=== PATIENT | female | born 1950 | race Caucasian/White ===

== ENCOUNTER 2018-05-11 04:44 | Inpatient (IN) ==
--- NOTE | 2018-04-25 08:41 | History & Physical Report ---
Date of Service April 25, 2018 Assessment & Plan (1) Degenerative arthritis of knee, bilateral: Risks and benefits of the procedure discussed in detail today, patient would like to proceed with bilateral total knee replacements at [facility]. Will obtain medical clearance with Dr Burgess this Wednesday04/27/18 prior to surgery as well as obtain PATs at [facility]. Will place on Xarelto x 4 weeks post op , f/u 2 weeks post op for routine post-operative care and xray, sooner if having any problems. will make arrangements for HHPT at the time of discharge, we also discussed potential rehab stay pending her recovery at [facility]. History of Present Illness Chief Complaint: bilateral knee pain Primary Care Provider: Altaf Burgess Ms Lock is a 67 year old female who complains of bilateral knee pain, presents today for pre-op evaluation prior to bilateral total knee replacements to be performed by Dr Abrams at [facility]. She states that her pain is greater on the right than the left. She states that the symptoms have been chronic non-traumatic and that her pain is constant with intermittent worsening. Currently the patient states that the symptoms are moderate-severe. The pain is described as aching and sharp. She rates her current pain as 8/10. The symptoms are aggravated by first steps while awake, sleeping in any position and walking. Zulema states that the symptoms are relieved by no specific activity. In addition to her knee pain, she is also experiencing crepitus, difficulty going to sleep and limping. Patient was referred to us by her family doctor, Dr Burgess. Xrays reviewed from her PCP showing degenerative changes to both of her knees, greatest in the patellofemoral joints with osteophyte formation. Patient has tried prior NSAIDs as well as previous Supartz injections, has used a brace as well as a cane on occasion for ambulation. Allergies Allergy/AdvReac Type Severity Reaction Status Date / Time No Known Allergies Allergy Verified 04/20/18 10:36 Home Medications Home Medications Medication Instructions Recorded Confirmed Type aspirin [Aspir-81] 81 mg PO QAM 04/20/18 04/20/18 History cholecalciferol (vitamin D3) 1,000 unit PO QAM 04/20/18 04/20/18 History [Vitamin D3] losartan-hydrochlorothiazide 1 tab PO QAM 04/20/18 04/20/18 History Past Med/Surg History Medical History History of hysterectomy Hypertension Osteoarthritis Surgical History History of basal cell carcinoma (BCC) excision EXCISON FROM SCALP History of cholecystectomy History of laminectomy LUMBAR History of tonsillectomy Family History Unknown Diabetes Hypertension Stroke Social History Current Living Situation: Spouse Other Information That Helps Us Care for You: No Feels Safe at Home: Yes Safety Concerns: Feels Safe At This Time Smoking Status: Never smoker Do You Dip or Chew Tobacco: No Second Hand Exposure: No Tobacco Cessation Education Requested by Patient: No Hx Alcohol Use: No Hx Substance Use: No Beliefs That Will Affect Care: None Preferred Language: Niuean Communication Ability: Effective Inside Sales Lead Required: No Review of Systems All systems reviewed & are unremarkable except as noted in HPI & below Physical Exam 2 Vital Signs (Past 24 Hours): BP 140/84 Pulse 82 Respirations 16 Constitutional: WD/WN, vitals as above no acute distress Respiratory: normal respiratory effort, lungs clear to auscultation Cardiovascular: RRR, no murmur, no edema Heart Sounds: no murmur Gastrointestinal (Abdomen): normal bowel sounds, soft, nontender, no hepatosplenomegaly Musculoskeletal: Right Knee Exam Ambulates with a limp, overall neutral Alignment, no Atrophy or ecchymosis, mild effusion, Maximum tenderness Medial joint line and diffuse, negative patellar Apprehension , mild Crepitation with motion, Bakari's and posterior drawer Negative, Gisele's - lateral positive, Gisele's - medial positive, Valgus stress Negative, Varus stress Negative, no Extensor lag, Pain with Active range of motion, also passive painful ROM, Range of motion 0/3/110. No pain with active/passive ROM of ankle. Lower Extremity Strength normal. Lower Extremity Neuro-vascular is normal Left Knee mild Effusion suprapatellar pouch, tenderness presend medial and lateral joint lines, negative patellar Apprehension , mild Crepitation with motion, Bakari's Negative, Gisele's - lateral positive, Gisele's - medial positive, Posterior drawer- Negative, Anterior drawer Negative, Valgus stress Negative, Varus stress Negative, no Extensor lag, Pain with Active range of motion, range of motion 0/5/115. No pain with active/passive ROM of ankle. Lower Extremity Strength normal. Lower Extremity Neuro-vascular is normal Results & Data Diagnostic Findings Bilateral knee X-rays: bilateral knee films showing degenerative changes to both knees, greatest in the patellofemoral joints bilaterally, mild valgus deformity noted on the right knee, neutral left knee. both knees showing osteophyte formation and patellar spurring noted to bilateral patellas. no acute bony pathology noted, no loose bodies noted. findings consistent with degenerative joint disease bilateral knees.
--- NOTE | 2018-04-25 13:02 | Anesthesiology Consultation ---
Date of Service April 25, 2018 Assessment & Plan (1) Encounter for pre-operative examination: Plan: - Discussed B/L versus staged TKA with patient; patient wishes to proceed with B /L TKA. Chart Review Chart Review: Acceptable Risk for Surgery and Patient seen in Pre Admission Testing Teaching & Discussion Pre-Anesthesia Teaching/Discussion Notes: Instructed NPO after midnight before surgery,except medications with 15 cc of water. Medication instructions provided according to the PAT guidelines. History Surgery Operation Date: 05/11/18 08:20 Proposed Procedures p Bilateral Total Knee Arthroplasty - Altaf Abrams DO Height/Weight Height: 5 ft 11 in Weight: 113.6 kg Allergies Allergy/AdvReac Type Severity Reaction Status Date / Time No Known Allergies Allergy Verified 04/20/18 10:36 Medications Home Medications Medication Instructions Recorded Confirmed Last Taken aspirin [Aspir-81] 81 mg PO QAM 04/20/18 04/20/18 Unknown cholecalciferol (vitamin D3) 1,000 unit PO QAM 04/20/18 04/20/18 Unknown [Vitamin D3] losartan-hydrochlorothiazide 1 tab PO QAM 04/20/18 04/20/18 Unknown Past Medical History Medical History Hypertension Osteoarthritis Past Family History Family History Unknown Diabetes Hypertension Stroke Past Surgical History Surgical History History of basal cell carcinoma (BCC) excision EXCISON FROM SCALP History of cholecystectomy History of hysterectomy History of laminectomy LUMBAR History of tonsillectomy Past Anesthesia History No Hx of Anesthesia Complications and No Family Hx of Anesthesia Complications History of PONV No Motion Sickness Screening History of Motion Sickness: No Social History Smoking Status: Never smoker Do You Dip or Chew Tobacco: No Hx Alcohol Use: No Alcohol Intake Frequency Comment: 0 Hx Substance Use: No substance use type: does not use Exercise / Class Metabolic Activity II 4-5 Yardwork/Stairs/Walk up hill Review of Systems Patient denies chest pain, shortness of breath, dyspnea on exertion, cough, wheezing, palpitations. Physical Exam Vital Signs VITALS BP 119/58 P 76 TEMP 97.7 SP02 93%RA RESP 16 Full neck and c-spine range of motion. Full TMJ range of motion. TMD 2.5 finger breaths Mallampati Score 3 Dentition: missing molars/sides, fragile/loose teeth 2/2 "gum disease" per patient Lungs: clear throughout to auscultation Cardiac: regular rate and rhythm, no murmurs noted Spine: normal Carotid arteries: negative bruit Extremities: no edema Testing Electrocardiogram Date: 04/25/18 Findings: + NSR @ (72) Chest X-Ray Date: 04/25/18 Findings: + NAD Linear opacities within the lingula are felt to be atelectatic. Laboratory Results 04/25/18 13:21 04/25/18 13:21 Blood Type A Positive 04/25/18 13:21 Antibody Screen NEGATIVE 04/25/18 13:21 PT 10.0 Seconds (9.0-12.0) 04/25/18 13:21 INR 1.0 (0.9-1.1) 04/25/18 13:21 APTT 25.0 Seconds (21.0-31.0) 04/25/18 13:21 Hemoglobin A1c 6.8 % (4.5-5.6) H 04/25/18 13:21 Urine Color Yellow 04/25/18 13:21 Urine Appearance Clear (Clear) 04/25/18 13:21 Urine pH 5.5 (4.5-7.5) 04/25/18 13:21 Ur Specific [place] 1.019 (1.000-1.030) 04/25/18 13:21 Urine Protein Negative (Negative) 04/25/18 13:21 Urine Glucose (UA) Negative (Negative) 04/25/18 13:21 Urine Ketones Trace (Negative) H 04/25/18 13:21 Urine Nitrite Negative (Negative) 04/25/18 13:21 Ur Leukocyte Esterase Trace (Negative) H 04/25/18 13:21 Urine WBC (Auto) 10-30 /hpf (0-5) H 04/25/18 13:21 Urine RBC (Auto) 0-4 /hpf (0-4) 04/25/18 13:21 U Hyaline Cast (Auto) 1-5 /lpf (0-5) 04/25/18 13:21 U Epithel Cells (Auto) >30 /lpf (0-5) H 04/25/18 13:21 Urine Bacteria (Auto) 1+ (Negative) H 04/25/18 13:21 04/25/18 13:21 Urine Culture - Preliminary Urine,Clean Catch Gram negative bacilli Surgeon made aware of abnormal UA
--- NOTE | 2018-04-25 13:05 | PAT Medication Instructions ---
Medication Instructions Date of Service April 25, 2018 Home Medications aspirin [Aspir-81] 81 mg PO QAM cholecalciferol (vitamin D3) 1,000 unit PO QAM losartan-hydrochlorothiazide 1 tab PO QAM DO NOT take the morning of surgery cholecalciferol (vitamin D3) 1,000 unit PO QAM losartan-hydrochlorothiazide 1 tab PO QAM Take morning of surgery With a small sip of water, OTHERWISE NOTHING TO EAT OR DRINK AFTER MIDNIGHT: aspirin [Aspir-81] 81 mg PO QAM Other Notes If you have any questions please call us at [phone] or [phone] or [phone] or [phone]
--- NOTE | 2018-04-25 14:06 | XRay Report ---
XR chest Pre-admission PA/Lat CLINICAL HISTORY: Preoperative chest COMPARISON STUDY: No previous studies for comparison. FINDINGS: The cardiac and mediastinal contours are normal. There is no evidence of focal pulmonary co nsolidation. There is no evidence of failure. No pleural effusions are visualized.[ Linear opacities within the lingula are felt to be atelectatic. IMPRESSION: No active disease in the chest. Electronically signed by: Michael Barrera M.D. 04/25/2018 2:04 PM
[2018-04-25 14:19] LABS: Basophils # (auto) 0.02 K/uL (0-0.2); Basophils % (auto) 0.2 %; Eosinophils # (auto) 0.09 K/uL (0-0.5); Eosinophils % (auto) 0.9 %; Hematocrit (blood only) 43.3 % (37-47); Hemoglobin 14.1 g/dL (12.0-16.0); Immature Granulocytes # (auto) 0.03 K/uL (0.00-0.02); Immature Granulocytes % (auto) 0.3 %; Lymphocytes # (auto) 2.07 K/uL (1.2-3.4); Lymphocytes % (auto) 21.4 %; Mean Corpuscular Hgb Conc 32.6 g/dL (32-36); Mean Corpuscular Volume 87.7 fL (80-100); Mean Platelet Volume 10.9 fL (7.4-10.4); Monocytes # (auto) 0.47 K/uL (0.11-0.59); Monocytes % (auto) 4.9 %; Neutrophils # (auto) 6.99 K/uL (1.4-6.5); Neutrophils % (auto) 72.3 %; Platelet Count 204 K/uL (130-400); RDW Coefficient of Variation 14.6 % (11.5-14.5); RDW Standard Deviation 46.6 fL (36.4-46.3); Red Blood Count 4.94 M/uL (4.2-5.4); White Blood Count 9.67 K/uL (4.8-10.8)
[2018-04-25 14:30] LABS: Albumin Level 3.7 gm/dl (3.4-5.0); Calcium 9.2 mg/dl (8.5-10.1); Creatinine Clr Calc Pharmacy 64.1 ml/min; Est GFR (African American) 56.2; Est GFR (Non-African American) 48.5; Potassium 4.1 mmol/L (3.5-5.1)
[2018-04-25 14:46] LABS: Appearance Urine Clear (Clear); Bacteria Urine Automated 1+ (Negative); Bilirubin Urine Negative (Negative); Color Urine Yellow; Epithelial Cell Urine Auto >30 /lpf (0-5); Glucose Urine UA Negative (Negative); Ketones Urine Trace (Negative); Leukocyte Esterase Urine Trace (Negative); Nitrite Urine Negative (Negative); Protein Urine Negative (Negative); Specific Gravity Urine 1.019 (1.000-1.030); Urobilinogen Urine Negative (Negative); pH Urine 5.5 (4.5-7.5)
[2018-04-25 14:48] LABS: Estimated Average Glucose 148 mg/dl
[2018-05-11] MEDS ORDERED: GABAPENTIN 300 MG PO SCH (06:00)
[2018-05-11] MEDS ORDERED: dexAMETHasone 4 MG TAB PO SCH (06:00)
[2018-05-11] MEDS ORDERED: TRANEXAMIC ACID 1,000 MG **IV Pre-op IV SCH (06:00)
[2018-05-11] MEDS ORDERED: ACETAMINOPHEN 500 MG TAB PO SCH (06:00)
[2018-05-11] MEDS ORDERED: CEFAZOLIN 2000MG 2,000 MG/15 ML SYR IV SCH (06:00)
[2018-05-11] MEDS ORDERED: METOCLOPRAMIDE HCL 10 MG TABLET PO SCH (06:00)
[2018-05-11] MEDS ORDERED: CeleBREX 200 MG CAP PO SCH (06:00)
[2018-05-11] MEDS ORDERED: ROPIVACAINE 0.5% HCL/PF 150 MG, BUPIVACAINE 0.5% MPF 30 ML, EPINEPHrine 30MG/30ML (OR U... INFIL SCH (06:00)
[2018-05-11] MEDS ORDERED: FAMOTIDINE 20 MG TAB PO SCH (06:00)
[2018-05-11] MEDS ORDERED: BUPIVACAINE 0.5 % 5 MG/1 ML PF 10ML VIAL ONE (06:28)
[2018-05-11] MEDS ORDERED: ROPIVACAINE 0.5% 5 MG/ML 30 ML VIAL ONE (06:28)
[2018-05-11] MEDS ORDERED: EPINEPHrine INJ 1 MG/ML AMP ONE (06:28)
[2018-05-11] MEDS ORDERED: TRANEXAMIC ACID 1,000 MG **IV Intra-op IV SCH (06:30)
[2018-05-11] MEDS: LR 500ML BOLUS, THEN 15ML/HR IV SCH ×3 (06:39→12:26)
--- NOTE | 2018-05-11 07:03 | History & Physical Bridge Note ---
Date of Service May 11, 2018 History & Physical Bridge Note I have examined the patient, reviewed the History & Physical and in the interval since the performance of the History & Physical I have noted the following changes of clinical significance: no changes noted
[2018-05-11] MEDS ORDERED: BACITRACIN INJ 50,000 UNIT VIAL ONE (07:06)
[2018-05-11] MEDS ORDERED: POVIDONE-IODINE OP SOLN 30 ML BTL ONE (07:06)
[2018-05-11] MEDS ORDERED: ORTHO JOINT ANESTHETIC ONE (07:06)
[2018-05-11] MEDS ORDERED: PHENYLEPHRINE 100MCG/ML 5ML SYR IV PRN (07:14)
[2018-05-11] MEDS ORDERED: MEPERIDINE HCL 25 MG/ML CARP IV PRN (07:14)
[2018-05-11] MEDS ORDERED: ePHEDrine sulfate 50 MG/ML AMP IV PRN (07:14)
[2018-05-11] MEDS ORDERED: ATROPINE SULFATE 0.1 MG/ML 10ML SYR IV PRN (07:14)
[2018-05-11] MEDS ORDERED: ONDANSETRON INJ 2 MG/ML 2 ML VIAL IV PRN ×2 (07:14→12:23)
[2018-05-11] MEDS ORDERED: LABETALOL HCL IV 5 MG/ML 20ML IV PRN (07:14)
[2018-05-11] MEDS ORDERED: fentaNYL citrate 100 MCG/2 ML VIAL IV PRN (07:14)
[2018-05-11] MEDS ORDERED: MIDAZOLAM HCL 1 MG/ML 2ML VIAL ONE ×2 (07:29→10:03)
--- NOTE | 2018-05-11 10:07 | Operative Report ---
Post Operative Report Pre & Post Diagnosis Operation Date: 05/11/18 08:20 Pre-Op Diagnosis: Bilateral knee degenerative joint disease Post-Op Diagnosis: Bilateral knee degenerative joint disease Procedure Operation Date: 05/11/18 08:20 Actual Procedures p Bilateral Total Knee Arthroplasty, Cemented(Bilateral) utilizing journey 2 patient matched total knee arthroplasty right size 6 femur 5 tibia 11 polyethylene 29 oval patella left size 6 femur 5 tibia 10 polyethylene 29 oval patella- Altaf Abrams DO Surgeon Altaf Abrams DO Media Relations Manager Kenan WHITLOCK Estimated Blood Loss 5 Findings Consistent with Post-Op Diagnosis Patient presents with bilateral DJD varus alignment with bilaterally subchondral cystic changes marginal osteophytes eburnated bone serial ligamentous laxity due to loss of medial bone and articular cartilage patient has moderate effusions of bilateral knees and subchondral cystic changes noted Specimens Bone and cartilage Drains Medium bore Hemovac Complications none Disposition Accompanied Patient To Recovery: No Disposition: Recovery Room Indications Patient presents as a 67-year-old white female with severe end-stage DJD bilateral knees no response to conservative management and physical therapy anti -inflammatories relative rest activity modifications corticosteroid injections relative rest patient presents for bilateral total knee arthroplasty failing all the above conservative measures. Description of Procedure After proper prepping and draping of the bilateral lower extremities, an anterior midline incision was made over the region of the extensor extensor mechanism of the left knee. After meticulous hemostasis was obtained and maintained in subcutaneous tissues a medial parapatellar incision was made The patella was subluxed lateralward the medial lateral gutter were cleaned from any hypertrophic synovitis and scar tissue of the distal femoral block was placed and the distal femoral osteotomy cut was made subsequently the chamfers anterior and posterior osteotomy cuts were made utilizing the 4-in-1 block the tibia was subsequently subluxed anteriorward medial and ateral meniscal remnants were excised in their entirety remnants of the anterior and posterior cruciate ligaments were excised in their entirety excellent exposure of the proximal tibia was obtained the tibial osteotomy guide was placed on the proximal tibial osteotomy cut was made once again the knee was irrigated with copious amounts of sterile saline solution the patella was subsequently everted lateralward thickened scar tissue around the patella was removed the patella was subsequently cut utilizing a freehand technique and was drilled prepared for final preparation and placement of patella socially flexion-extension gaps were checked and the equal and symmetric trials were placed to the appropriate femoral and tibial trials with poly-spacer being placed for equal flexion and extension gaps and full range of motion including extension to 0 and flexion to 140� the trial components after having been taken to recovery range of motion was subsequently removed meticulous hemostasis was obtained and maintained subsequently a knee block injection of joint cocktail including ropivacaine 0.5 % 150 mg. Bupivacaine 0.5% epinephrine 1-200,030 mL's toradol 30 mg dexamethasone 4 mg ketamine 10 mg clonidine 100 micrograms normal saline solution 30 mg was infiltrated into the soft tissues of the posterior knee medial lateral gutters and periosteal synovium special attention was paid to protect neurovascular structures at all times subsequently trial components having been removed the knee was irrigated with sterile saline solution. debris was removed the proximal tibia was subsequently prepared and was made ready for the placement of the tibial component tibial component was also cemented and tamped into position the femoral component was subsequently placed and cemented in the position the patellar component was subsequently cemented in position because hemostasis once again obtained and maintained wound having been thoroughly irrigated with debridement and debridement lavage was performed as well as a medial parapatellar incision closed with #1 Vicryl in interrupted fashion subcutaneous was closed with #2 Vicryl skin was closed with skin clips Next, an anterior midline incision was made over the region of the extensor extensor mechanism of the right knee. After meticulous hemostasis was obtained and maintained in subcutaneous tissues a medial parapatellar incision was made The patella was subluxed lateralward the medial lateral gutter were cleaned from any hypertrophic synovitis and scar tissue of the distal femoral block was placed and the distal femoral osteotomy cut was made subsequently the chamfers anterior and posterior osteotomy cuts were made utilizing the 4-in-1 block the tibia was subsequently subluxed anteriorward medial and ateral meniscal remnants were excised in their entirety remnants of the anterior and posterior cruciate ligaments were excised in their entirety excellent exposure of the proximal tibia was obtained the tibial osteotomy guide was placed on the proximal tibial osteotomy cut was made once again the knee was irrigated with copious amounts of sterile saline solution the patella was subsequently everted lateralward thickened scar tissue around the patella was removed the patella was subsequently cut utilizing a freehand technique and was drilled prepared for final preparation and placement of patella socially flexion-extension gaps were checked and the equal and symmetric trials were placed to the appropriate femoral and tibial trials with poly-spacer being placed for equal flexion and extension gaps and full range of motion including extension to 0 and flexion to 140� the trial components after having been taken to recovery range of motion was subsequently removed meticulous hemostasis was obtained and maintained subsequently a knee block injection of joint cocktail including ropivacaine 0.5 % 150 mg. Bupivacaine 0.5% epinephrine 1-200,030 mL's toradol 30 mg dexamethasone 4 mg ketamine 10 mg clonidine 100 micrograms normal saline solution 30 mg was infiltrated into the soft tissues of the posterior knee medial lateral gutters and periosteal synovium special attention was paid to protect neurovascular structures at all times subsequently trial components having been removed the knee was irrigated with sterile saline solution. debris was removed the proximal tibia was subsequently prepared and was made ready for the placement of the tibial component tibial component was also cemented and tamped into position the femoral component was subsequently placed and cemented in the position the patellar component was subsequently cemented in position because hemostasis once again obtained and maintained wound having been thoroughly irrigated with debridement and debridement lavage was performed as well as a medial parapatellar incision closed with #1 Vicryl in interrupted fashion subcutaneous was closed with #2 Vicryl skin was closed with skin clips.. PA-C was necessary for prepping and drapping as well as wound closure of deep fascia Sub cutaneous tissue and skin and was necessary for the case. A sterile compressive dressings were placed, patient was taken to recovery in stable condition of report dictated by Jose Alberto I attest to the content of the Intraoperative Record and any orders documented therein. Any exceptions are noted below. I attest to the content of the Intraoperative Record and any orders documented therein. Any exceptions are noted below.
--- NOTE | 2018-05-11 11:13 | Anesthesiology Progress Note ---
Date of Service May 11, 2018 Anesthesia Post Procedure Vital Signs Vital Signs: Temp Pulse Resp BP Pulse Ox 05/11/18 06:41 36.7 C 71 20 159/74 H 94 Notes Mental Status: alert / awake / arousable Patient Amnestic to Procedure: Yes Nausea / Vomiting: adequately controlled Pain: adequately controlled Airway Patency, RR, SpO2: stable & adequate BP & HR: stable & adequate Hydration State: stable & adequate Neuraxial Anesthesia: was administered and sensory block is resolving Anesthetic Complications: no major complications apparent and Pt Satisfied with anesthetic care
--- NOTE | 2018-05-11 11:33 | XRay Report ---
XR knee LT 2V routine CLINICAL HISTORY: Surgical Post Op COMPARISON: Outside radiographs dated 04/28/2018 DISCUSSION: There are postsurgical changes of a total left knee arthroplasty and patellar resurfacing . Overlying surgical drains are evident. There is air within soft tissues consistent with recent surg joseph. The femoral and tibial components appear well seated. IMPRESSION: Postsurgical changes of a total left knee arthroplasty. Electronically signed by: Michael Barrera M.D. 05/11/2018 11:31 AM
--- NOTE | 2018-05-11 11:35 | XRay Report ---
XR knee RT 2V routine CLINICAL HISTORY: Surgical Post Op DEGENERATIVE ARTHRITIS COMPARISON: Outside radiograph dated 04/18/2018 DISCUSSION: There are postsurgical changes of a total right knee arthroplasty and patellar resurfacin g. Overlying surgical drains are evident. There is air within the soft tissues, consistent with recen t surgery. The femoral and tibial components appear well seated. The tibial component is very slightl y eccentrically placed with regards to the proximal tibial osteotomy with the proximal tibial flange demonstrating 4 mm of offset. IMPRESSION: Postsurgical changes of a total right knee arthroplasty. Electronically signed by: Michael Barrera M.D. 05/11/2018 11:33 AM
[2018-05-11] MEDS ORDERED: HYDROmorphone INJ 1 MG/ML SYRINGE IV PRN (12:23)
[2018-05-11] MEDS ORDERED: NALOXONE HCL 0.4 MG/1 ML VIAL/CARP IV PRN (12:23)
[2018-05-11] MEDS ORDERED: SODIUM CHLORIDE 0.9% 1000ML 1,000 ML IV SCH (12:23)
[2018-05-11] MEDS ORDERED: BISACODYL 10 MG SUPP PR PRN (12:23)
[2018-05-11] MEDS ORDERED: MAGNESIUM HYDROXIDE SUSP 30 ML UDC PO PRN (12:23)
[2018-05-11] MEDS ORDERED: METOCLOPRAMIDE HCL INJ 5 MG/ML 2 ML VIAL IV PRN (12:23)
[2018-05-11] MEDS: KETOROLAC TROMETHAMINE 15 MG/ML VIAL IV SCH ×2 (13:54→20:02)
[2018-05-11] MEDS: ACETAMINOPHEN 500 MG TAB PO SCH ×2 (13:54→21:52)
[2018-05-11] MEDS: CEFAZOLIN 2000MG 2,000 MG/15 ML SYR IV SCH ×2 (15:43→23:41)
[2018-05-11] MEDS: FERROUS GLUCONATE 324 MG TAB PO SCH (18:54)
[2018-05-11] MEDS: OXYCODONE HCL IR 5 MG TAB (IMMEDIATE RELEASE) PO PRN (20:02)
[2018-05-11] MEDS: SENNA 8.6 MG TAB PO SCH (20:12)
[2018-05-11] MEDS: DOCUSATE SODIUM 100 MG CAP PO SCH (20:12)
[2018-05-11] MEDS ORDERED: Nursing to Pharmacy Communication ONE (20:52)
[2018-05-12] MEDS: KETOROLAC TROMETHAMINE 15 MG/ML VIAL IV SCH ×2 (01:43→08:07)
[2018-05-12 06:02] LABS: Hematocrit (blood only) 36.4 % (37-47); Hemoglobin 12.1 g/dL (12.0-16.0); Mean Corpuscular Hgb Conc 33.2 g/dL (32-36); Mean Corpuscular Volume 86.5 fL (80-100); Mean Platelet Volume 10.7 fL (7.4-10.4); Platelet Count 172 K/uL (130-400); RDW Coefficient of Variation 14.2 % (11.5-14.5); RDW Standard Deviation 44.4 fL (36.4-46.3); Red Blood Count 4.21 M/uL (4.2-5.4); White Blood Count 14.61 K/uL (4.8-10.8)
[2018-05-12] MEDS: OXYCODONE HCL IR 5 MG TAB (IMMEDIATE RELEASE) PO PRN ×4 (06:11→19:12)
[2018-05-12] MEDS: ACETAMINOPHEN 500 MG TAB PO SCH ×3 (06:12→21:29)
[2018-05-12 06:21] LABS: Alanine Aminotransferase 20 U/L (12-78); Albumin Level 2.9 gm/dl (3.4-5.0); Aspartate Aminotransferase 12 U/L (15-37); BUN Creatinine Ratio 24.6 (10-20); Bilirubin Direct < 0.1 mg/dl (0-0.2); Blood Urea Nitrogen 26 mg/dl (7-18); Calcium 8.4 mg/dl (8.5-10.1); Carbon Dioxide 24 mmol/L (21-32); Chloride 109 mmol/L (98-107); Creatinine Clr Calc Pharmacy 68.9 ml/min; Est GFR (Non-African American) 53.5; Glucose 146 mg/dl (70-99); Potassium 3.4 mmol/L (3.5-5.1); Sodium 139 mmol/L (136-145)
[2018-05-12 06:24] LABS: Alkaline Phosphatase 52 U/L (45-117); Bilirubin,Total 0.3 mg/dl (0.2-1); Total Protein 5.6 gm/dl (6.4-8.2)
--- NOTE | 2018-05-12 06:59 | Orthopedic Progress Note ---
Date of Service May 12, 2018 Assessment & Plan (1) History of total bilateral knee replacement (TKR): POD #1 s/p Bilateral TKA PT/OT dvt proph with ciara/scd/xarelto x 1 month bilateral JOSEFA dressings x 7 days pain control with Tylenol/Oxy/IV Dilaudid for breakthrough pain pt unsure of d/c planning, HHPT vs Rehab. will discuss with CM Subjective POD #1 s/p bilateral TKA denies CP/SOB denies Fever/chills pain currently 5/10 both knees Physical Exam 2 Vital Signs (Past 24 Hours): Last Vital Signs Temp 36.5 C 05/12/18 03:40 Pulse 66 05/12/18 03:40 Resp 18 05/12/18 03:40 BP 112/69 05/12/18 03:40 Pulse Ox 93 05/12/18 03:40 Musculoskeletal: Bilateral Lower Extremities: NVDI, calf SNT, negative zohra sign bilaterally. DP palpable, able to wiggle toes/ankle movement without difficulty. dressings clean dry and intact. Drain output as below: Vital Signs Temp 36.5 C 05/12/18 03:40 Pulse 66 05/12/18 03:40 Resp 18 05/12/18 03:40 BP 112/69 05/12/18 03:40 Pulse Ox 93 05/12/18 03:40 Intake & Output 05/11/18 05/11/18 05/12/18 06:59 18:59 06:59 Intake Total 2110 / 2110 840 / 840 Output Total 85 / 85 1440 / 1440 Balance 2024 / 2024 -600 / -600 Weight 111.629 kg 111.6 kg Intake: IV 810 / 810 590 / 590 Lr 1,000 ml @ 999 mls/hr IV . 700 / 700 Q1H1M NAE Rx#: [id number] Nss 1000ML 1,0 00 ml @ 100 mls/ 590 / 590 hr IV .Q10H SC H Rx#:[id number] Cyklokapron 1, 000 mg In Sodium 110 / 110 Chloride 100 m l @ 660 mls/hr IV 0630 NAE Rx#:0 [id number] IV Perioperative 1300 / 1300 Oral 250 / 250 Output: Urine 900 / 900 Estimated Blood Loss 5 / 5 Drain Output 80 / 80 540 / 540 Left Knee Hemo vac 30 / 30 265 / 265 Right Knee Hem ovac 50 50 275 / 275
[2018-05-12] MEDS: MULTIVITAMIN TAB PO SCH (08:57)
[2018-05-12] MEDS: FERROUS GLUCONATE 324 MG TAB PO SCH ×2 (08:57→19:03)
[2018-05-12] MEDS: DOCUSATE SODIUM 100 MG CAP PO SCH ×2 (08:57→20:14)
[2018-05-12] MEDS: LOSARTAN/HCTZ 50/12.5MG TAB PO SCH (08:57)
[2018-05-12] MEDS: CHOLECALCIFEROL 1,000 UNITS TAB PO SCH (08:58)
[2018-05-12] MEDS: RIVAROXABAN 10 MG TABLET PO SCH (09:13)
--- NOTE | 2018-05-12 09:21 | Anesthesiology Progress Note ---
Date of Service May 12, 2018 Anesthesia Post Procedure Vital Signs Vital Signs: Temp Pulse Pulse Resp BP Pulse Ox 05/12/18 07:42 36.5 C 67 16 101/66 93 05/12/18 03:40 36.5 C 66 18 112/69 93 05/11/18 22:56 36.7 C 67 18 94/60 L 93 05/11/18 15:04 36.4 C L 73 18 129/77 93 05/11/18 14:00 36.7 C 60 18 114/72 93 05/11/18 13:00 36.3 C L 70 18 103/65 95 05/11/18 12:36 63 16 112/68 91 05/11/18 12:00 36.5 C 71 16 105/67 95 05/11/18 11:30 36.8 C 66 14 105/57 L 97 05/11/18 11:20 65 14 104/60 97 05/11/18 11:10 70 18 110/61 95 05/11/18 11:00 71 16 117/61 95 05/11/18 10:51 37.1 C 71 16 134/64 96 Notes Mental Status: alert / awake / arousable and participated in evaluation Patient Amnestic to Procedure: Yes Nausea / Vomiting: adequately controlled Pain: adequately controlled Airway Patency, RR, SpO2: stable & adequate Hydration State: stable & adequate Neuraxial Anesthesia: was administered and sensory block is resolving Anesthetic Complications: no major complications apparent and Pt Satisfied with anesthetic care
[2018-05-12] MEDS: CeleBREX 200 MG CAP PO SCH (20:14)
[2018-05-12] MEDS: SENNA 8.6 MG TAB PO SCH (20:15)
[2018-05-13] MEDS: OXYCODONE HCL IR 5 MG TAB (IMMEDIATE RELEASE) PO PRN ×4 (05:36→19:15)
[2018-05-13] MEDS: ACETAMINOPHEN 500 MG TAB PO SCH ×3 (05:36→21:11)
[2018-05-13 06:42] LABS: BUN Creatinine Ratio 26.6 (10-20); Calcium 8.6 mg/dl (8.5-10.1); Creatinine Clr Calc Pharmacy 66.4 ml/min; Est GFR (African American) 59.3; Est GFR (Non-African American) 51.2; Potassium 3.4 mmol/L (3.5-5.1)
[2018-05-13] MEDS: DOCUSATE SODIUM 100 MG CAP PO SCH ×2 (08:26→17:49)
[2018-05-13] MEDS: CHOLECALCIFEROL 1,000 UNITS TAB PO SCH (08:26)
[2018-05-13] MEDS: RIVAROXABAN 10 MG TABLET PO SCH (08:27)
[2018-05-13] MEDS: LOSARTAN/HCTZ 50/12.5MG TAB PO SCH (08:27)
[2018-05-13] MEDS: MULTIVITAMIN TAB PO SCH (08:27)
[2018-05-13] MEDS: CeleBREX 200 MG CAP PO SCH ×2 (08:27→21:11)
[2018-05-13] MEDS: FERROUS GLUCONATE 324 MG TAB PO SCH ×2 (08:27→17:49)
[2018-05-13 10:05] LABS: Hematocrit (blood only) 32.6 % (37-47); Hemoglobin 10.8 g/dL (12.0-16.0); Mean Corpuscular Hgb Conc 33.1 g/dL (32-36); Mean Corpuscular Volume 87.4 fL (80-100); Platelet Count 151 K/uL (130-400); RDW Coefficient of Variation 14.5 % (11.5-14.5); RDW Standard Deviation 46.6 fL (36.4-46.3); Red Blood Count 3.73 M/uL (4.2-5.4); White Blood Count 11.18 K/uL (4.8-10.8)
--- NOTE | 2018-05-13 10:51 | Orthopedic Progress Note ---
Date of Service May 13, 2018 Assessment & Plan (1) History of total bilateral knee replacement (TKR): POD #2 s/p Bilateral TKA PT/OT dvt proph with ciara/scd/xarelto x 1 month bilateral JOSEFA dressings x 7 days pain control with Tylenol/Oxy/IV Dilaudid for breakthrough pain D/C planning is [facility]. If accepted and approved, will d/c later today. Subjective POD #1 s/p bilateral TKA denies CP/SOB denies Fever/chills pain currently 3-5/10 both knees. Pain is controlled with pain medications. Feels she is having more difficulty with flexion today vs. yesterday. Physical Exam 2 Vital Signs (Past 24 Hours): Last Vital Signs Temp 36.7 C 05/13/18 06:58 Pulse 71 05/13/18 06:58 Resp 18 05/13/18 06:58 BP 114/70 05/13/18 06:58 Pulse Ox 96 05/13/18 06:58 Constitutional: WD/WN, vitals as above Musculoskeletal: Knee: + surgical incision (Bilateral knees with JOSEFA dressings in place and functioning well.); knee normal to inspection, no deformity, no skin erythema, no ecchymosis, no valgus alignment and no varus alignment Neurologic: normal touch/pain/proprioception (Bilateral lower extremities with normal dorsiflexion and plantarflexion.)
[2018-05-13] MEDS: SENNA 8.6 MG TAB PO SCH (17:49)
[2018-05-14] MEDS: OXYCODONE HCL IR 5 MG TAB (IMMEDIATE RELEASE) PO PRN ×3 (00:45→14:00)
[2018-05-14] MEDS: ACETAMINOPHEN 500 MG TAB PO SCH ×2 (05:49→13:26)
[2018-05-14] MEDS: CHOLECALCIFEROL 1,000 UNITS TAB PO SCH (07:25)
[2018-05-14] MEDS: RIVAROXABAN 10 MG TABLET PO SCH (07:25)
[2018-05-14] MEDS: FERROUS GLUCONATE 324 MG TAB PO SCH (07:25)
[2018-05-14] MEDS: DOCUSATE SODIUM 100 MG CAP PO SCH (07:25)
[2018-05-14] MEDS: MULTIVITAMIN TAB PO SCH (07:25)
[2018-05-14] MEDS: LOSARTAN/HCTZ 50/12.5MG TAB PO SCH (07:25)
[2018-05-14] MEDS: CeleBREX 200 MG CAP PO SCH (07:26)
--- NOTE | 2018-05-14 08:55 | Orthopedic Progress Note ---
Date of Service May 14, 2018 Assessment & Plan (1) History of total bilateral knee replacement (TKR): POD #3 s/p Bilateral TKA PT/OT dvt proph with ciara/scd/xarelto x 1 month bilateral JOSEFA dressings x 7 days pain control with Tylenol/Oxy/IV Dilaudid for breakthrough pain Will check CBC today. Plan for SNF upon d/c to [facility]. (2) Lightheadedness: Subjective POD #3 s/p bilateral TKA denies CP/SOB denies Fever/chills pain currently 3-5/10 both knees. Pain is controlled with pain medications. Feeling lightheaded sitting and doing knee exercises. Hasn't been able to stand because of the lightheadedness. Blood pressures have been down to 90 systolic. Physical Exam 2 Vital Signs (Past 24 Hours): Last Vital Signs Temp 36.9 C 05/14/18 06:35 Pulse 64 05/14/18 06:35 Resp 16 05/14/18 06:35 BP 103/65 05/14/18 06:35 Pulse Ox 97 05/14/18 06:35 Constitutional: WD/WN, vitals as above Musculoskeletal: Knee: + surgical incision (Bilateral knees with JOSEFA dressings in place and functioning well.); knee normal to inspection, no deformity, no skin erythema, no ecchymosis, no valgus alignment and no varus alignment Neurologic: normal touch/pain/proprioception (Bilateral lower extremities with normal dorsiflexion and plantarflexion.)
[2018-05-14 09:09] LABS: Hemoglobin 11.3 g/dL (12.0-16.0); Mean Corpuscular Volume 86.5 fL (80-100); Mean Platelet Volume 10.4 fL (7.4-10.4); Platelet Count 191 K/uL (130-400); RDW Coefficient of Variation 14.8 % (11.5-14.5); RDW Standard Deviation 46.5 fL (36.4-46.3); Red Blood Count 3.93 M/uL (4.2-5.4); White Blood Count 13.42 K/uL (4.8-10.8)
[2018-05-14 09:13] LABS: Mean Corpuscular Hgb Conc 33.2 g/dL (32-36)
[2018-05-14] MEDS ORDERED: SODIUM CHLORIDE 0.9% 1000ML 500 ML IV ONE (10:03)
--- NOTE | 2018-05-16 08:00 | Discharge Summary ---
Date of Service Date of Admission: 05/11/18 date of discharge: 05/14/18 Admission HPI Per Admitting Provider Ms Lock is a 67 year old female who complains of bilateral knee pain, presents today for pre-op evaluation prior to bilateral total knee replacements to be performed by Dr Abrams at [facility]. She states that her pain is greater on the right than the left. She states that the symptoms have been chronic non-traumatic and that her pain is constant with intermittent worsening. Currently the patient states that the symptoms are moderate-severe. The pain is described as aching and sharp. She rates her current pain as 8/10. The symptoms are aggravated by first steps while awake, sleeping in any position and walking. Zulema states that the symptoms are relieved by no specific activity. In addition to her knee pain, she is also experiencing crepitus, difficulty going to sleep and limping. Patient was referred to us by her family doctor, Dr Burgess. Xrays reviewed from her PCP showing degenerative changes to both of her knees, greatest in the patellofemoral joints with osteophyte formation. Patient has tried prior NSAIDs as well as previous Supartz injections, has used a brace as well as a cane on occasion for ambulation. Principal Diagnosis bilateral knee DJD Discharge Exam Constitutional WD/WN, vitals as above no acute distress Musculoskeletal Bilateral lower extremities: NVDI, calf SNT, negative zohra sign. DP palpable, able to wiggle toes/ankle movement without difficulty. JOSEFA dressing clean dry and intact. expected post- operative bruising noted. Discharge Data Allergies Allergy/AdvReac Type Severity Reaction Status Date / Time No Known Allergies Allergy Verified 05/11/18 06:38 Consultations 05/11/18 12:23 Consult Case Management - Discharge Planning Routine Procedures Performed Operation Date: 05/11/18 08:20 Actual Procedures p Bilateral Total Knee Arthroplasty, Cemented(Bilateral) - Altaf Abrams DO Ordered Studies 05/11/18 05:00 US - OR guided needle placemen Routine Hospital Course (1) History of total bilateral knee replacement (TKR): Patient was a same day admission after undergoing successful Bilateral TKAs. She tolerated the procedure well. Post-operatively, her activity was progressed and well tolerated. Please refer to daily progress notes and PT notes for complete details. After exam on 05/14/18, patient felt to be stable for [facility]. Patient will f/u in the office in 2 weeks for further evaluation including x-rays and incision check, sooner if having any issues or concerns. Below are pertinent labs/studies during their hospital stay: Laboratory Results WBC 13.42 K/uL (4.8-10.8) H 05/14/18 09:00 RBC 3.93 M/uL (4.2-5.4) L 05/14/18 09:00 Hgb 11.3 g/dL (12.0-16.0) L 05/14/18 09:00 Hct 34.0 % (37-47) L 05/14/18 09:00 MCV 86.5 fL (80-100) 05/14/18 09:00 MCH 28.8 pg (25-34) 05/14/18 09:00 MCHC 33.2 g/dL (32-36) 05/14/18 09:00 RDW Std Deviation 46.5 fL (36.4-46.3) H 05/14/18 09:00 RDW Coeff of Chikis 14.8 % (11.5-14.5) H 05/14/18 09:00 Plt Count 191 K/uL (130-400) 05/14/18 09:00 MPV 10.4 fL (7.4-10.4) 05/14/18 09:00 Immature Gran % (Auto) 0.3 % 04/25/18 13:21 Neut % (Auto) 72.3 % 04/25/18 13:21 Lymph % (Auto) 21.4 % 04/25/18 13:21 Frederick % (Auto) 4.9 % 04/25/18 13:21 Eos % (Auto) 0.9 % 04/25/18 13:21 Baso % (Auto) 0.2 % 04/25/18 13:21 Immature Gran # (Auto) 0.03 K/uL (0.00-0.02) H 04/25/18 13:21 Neut # (Auto) 6.99 K/uL (1.4-6.5) H 04/25/18 13:21 Lymph # (Auto) 2.07 K/uL (1.2-3.4) 04/25/18 13:21 Frederick # (Auto) 0.47 K/uL (0.11-0.59) 04/25/18 13:21 Eos # (Auto) 0.09 K/uL (0-0.5) 04/25/18 13:21 Baso # (Auto) 0.02 K/uL (0-0.2) 04/25/18 13:21 PT 10.0 Seconds (9.0-12.0) 04/25/18 13:21 INR 1.0 (0.9-1.1) 04/25/18 13:21 APTT 25.0 Seconds (21.0-31.0) 04/25/18 13:21 PTT Ratio 1.0 04/25/18 13:21 Sodium 141 mmol/L (136-145) 05/13/18 05:53 Potassium 3.4 mmol/L (3.5-5.1) L 05/13/18 05:53 Chloride 107 mmol/L (98-107) 05/13/18 05:53 Carbon Dioxide 26 mmol/L (21-32) 05/13/18 05:53 Anion Gap 7.0 (3-11) 05/13/18 05:53 BUN 29 mg/dl (7-18) H 05/13/18 05:53 Creatinine 1.10 mg/dl (0.6-1.2) 05/13/18 05:53 Est Cr Clr Drug Dosing 66.4 ml/min 05/13/18 05:53 Est GFR ( Amer) 59.3 05/13/18 05:53 Est GFR (Non-Af Amer) 51.2 05/13/18 05:53 BUN/Creatinine Ratio 26.6 (10-20) H 05/13/18 05:53 Glucose 113 mg/dl (70-99) H 05/13/18 05:53 Estimat Average Glucose 148 mg/dl 04/25/18 13:21 Hemoglobin A1c 6.8 % (4.5-5.6) H 04/25/18 13:21 Calcium 8.6 mg/dl (8.5-10.1) 05/13/18 05:53 Total Bilirubin 0.3 mg/dl (0.2-1) 05/12/18 05:27 Direct Bilirubin < 0.1 mg/dl (0-0.2) 05/12/18 05:27 AST 12 U/L (15-37) L 05/12/18 05:27 ALT 20 U/L (12-78) 05/12/18 05:27 Alkaline Phosphatase 52 U/L (45-117) 05/12/18 05:27 Total Protein 5.6 gm/dl (6.4-8.2) L 05/12/18 05:27 Albumin 2.9 gm/dl (3.4-5.0) L 05/12/18 05:27 Urine Color Yellow 04/25/18 13:21 Urine Appearance Clear (Clear) 04/25/18 13:21 Urine pH 5.5 (4.5-7.5) 04/25/18 13:21 Ur Specific [place] 1.019 (1.000-1.030) 04/25/18 13:21 Urine Protein Negative (Negative) 04/25/18 13:21 Urine Glucose (UA) Negative (Negative) 04/25/18 13:21 Urine Ketones Trace (Negative) H 04/25/18 13:21 Urine Blood Negative (Negative) 04/25/18 13:21 Urine Nitrite Negative (Negative) 04/25/18 13:21 Urine Bilirubin Negative (Negative) 04/25/18 13:21 Urine Urobilinogen Negative (Negative) 04/25/18 13:21 Ur Leukocyte Esterase Trace (Negative) H 04/25/18 13:21 Urine WBC (Auto) 10-30 /hpf (0-5) H 04/25/18 13:21 Urine RBC (Auto) 0-4 /hpf (0-4) 04/25/18 13:21 U Hyaline Cast (Auto) 1-5 /lpf (0-5) 04/25/18 13:21 U Epithel Cells (Auto) >30 /lpf (0-5) H 04/25/18 13:21 Urine Bacteria (Auto) 1+ (Negative) H 04/25/18 13:21 Hepatitis C Ab Screen Neg (Neg) 05/12/18 05:27 Blood Type A Positive 04/25/18 13:21 Antibody Screen NEGATIVE 04/25/18 13:21 Total Time Total Time Spent Total Time Spent (In Minutes): 20 Total Time Includes: Examination of the Patient, Discharge Planning, Medication Reconciliation and Communication With Other Providers Discharge Plan Discharge Items Patient Disposition: Transfer Half-Way Fac Reason For Visit: POST SURGICAL CARE Discharge Diagnosis: bilateral knee osteoarthritis Discharge Goals: Decrease discomfort and Improve function Activity: Per 'Additional Instructions' section Weightbearing: Left weightbearing and Right weightbearing Weightbearing Comment: Weightbear as tolerated bilateral lower extremities Non-emergency contact: Surgeon Call non-emergency contact if: your pain is not controlled, your pain is worsening, your temperature is above 101.5, your wound has increased redness and your wound has increased drainage Follow-up/Referrals: Altaf Burgess D.O. [Primary Care Provider] - Diet: Regular Addtl Provider Instructions: ACTIVITY RECOMMENDATIONS: SELF CARE INSTRUCTIONS AFTER TOTAL KNEE REPLACEMENT A. You may need to continue a physical therapy program after discharge from the hospital. There are several options available to you. Your doctor will assist you in selecting the best one for you. 1. An out-patient facility 3 times a week for therapy. 2. Home therapy for 1 to 2 weeks with outpatient therapy to follow. 3. Continue working on all exercises taught by physical therapy three times a day for 20 minutes on non-therapy days. Your goals should be to increase the bending of your knee to 90 degrees and beyond and to fully straighten your knee. Ice and elevate knee after exercise. B. Weight as tolerated with a walker or as instructed by your physician. C. It is okay to shower if minimal to no drainage from incision. No Baths. Do not soak wound. D. Make walking a part of your daily routine. Be up as much as comfortable with rest periods throughout the day. Rest with leg elevation is very important. Use the ice wrap frequently for the first 3-4 weeks. E. There are no restrictions on activities. 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 F. Wear the long elastic stockings (ADELAIDE hose) 20 hours a day for one month after surgery. They can be removed several times a day for laundering and when showering. G. JOSEFA dressing: You have a JOSEFA dressing on your surgical wound. It will remain in place for 7 days from surgery. You will be provided with a booklet with the do's and don'ts with the dressing in place. After 7 days, the dressing may be removed. If there is drainage from the surgical incision, you may cover the wound with dry dressings SPECIAL CARE INSTRUCTIONS: VERY IMPORTANT TO READ AND REVIEW A. Take Xarelto (blood thinning medications) as directed by your doctor. If on Coumadin, have a pro-time (blood test) drawn according to your doctor's instructions. This will tell the doctor how well the Coumadin is thinning your blood. B. There are a few signs you need to watch for after you are home. Call [facility] if you notice any of the followin. Increased severe knee pain. Some pain is expected especially when you exercise. 2. Increased swelling in your leg or knee; pain or swelling of the calf muscle in either lower leg. 3. Any redness or fluid drainage from the incision. 4. Shortness of breath or chest pain. 5. A Temperature of 101.5 degrees F or greater. C. Please call [facility] at if you have any concerns or questions about your operation or recovery. The doctor or his nurse will return your call promptly. D. You must take antibiotics before dental work, bladder, bowel or other surgery. Your doctor will provide you with a permanent care to carry describing this precaution. FOLLOW UP VISIT: If appointment is not already scheduled: Please call [facility] to make a follow-up appointment for 2 weeks after your surgery at . Prescriptions: New acetaminophen [Pain Reliever] 500 mg Tablet 1,000 mg PO Q8 Qty: 120 RF: 0 oxycodone 5 mg Tablet 5 - 10 mg PO Q4H PRN (Reason: pain) Qty: 30 RF: 0 rivaroxaban [Xarelto] 10 mg Tablet 10 mg PO DAILY 14 Days Qty: 14 RF: 0 Continue aspirin [Aspir-81] 81 mg Tablet,Delayed Release (Dr/Ec) 81 mg PO QAM RF: 0 losartan-hydrochlorothiazide 50-12.5 mg Tablet 1 tab PO QAM RF: 0 cholecalciferol (vitamin D3) [Vitamin D3] 1,000 unit Capsule 1,000 unit PO QAM RF: 0 Stand-Alone Forms: [facility] Discharge Orders: Discharge Order (Routine); Ordered 05/14/18 Ordered By: Gen Burgess Skilled Items Patient informed of condition?: Yes DNR: No Discharge Level of Care: Acute rehab Communicable Disease: No Discharge Prognosis: Stable Admission Data Admit Date/Time: 05/11/18 10:56 Attending Provider: Altaf Abrams Admit Provider: Altaf Abrams Primary Care Provider: Altaf Burgess Service: Surgical Services Other Interventions: Discharge Summary Assessment (RN) Last Done: 05/14/18 09:17 DC Date/Time DO NOT enter until pt leaves facility: 05/14/18 14:55
== END 2018-05-14 14:55 | DRG 462 ==
LOC: ASU 04:44 → 3E 10:56
DX: Z79.899 Other long term (current) drug therapy; Z79.82 Long term (current) use of aspirin; M17.0 Bilateral primary osteoarthritis of knee; R42 Dizziness and giddiness; M21.162 Varus deformity, not elsewhere classified, left knee; M21.061 Valgus deformity, not elsewhere classified, right knee; M25.461 Effusion, right knee; M25.462 Effusion, left knee; I10 Essential (primary) hypertension